=== PATIENT | female | born 1950 | race Hispanic/Latino ===

== ENCOUNTER → 2017-08-08 | Outpatient (CLI) | payer MEDICARE, OTHER ==
--- NOTE | 2017-08-08 11:32 | Diagnostic Imaging Report ---
PROCEDURE: Frontal and lateral views of the chest. COMPARISON: None. INDICATIONS: PRE PROCEDURAL CHEST X-RAY FINDINGS: Lines/tubes: None. Lungs: The lungs are well inflated and clear. There is no evidence of pneumonia or pulmonary edema. Pleura: There is no pleural effusion or pneumothorax. Heart and mediastinum: The heart and the mediastinum are normal. Bones: No acute bony abnormality. Degenerative changes in the thoracic spine. IMPRESSION: 1. No acute cardiopulmonary abnormality. Maverick Calderon M.D. Dictated by: Maverick Calderon M.D. on 08/08/2017 at 11:32 Electronically approved by: Maverick Calderon M.D. on 08/08/2017 at 11:32
== END ==
LOC: RAD 10:37
PROVIDERS: ATTEND Emergency Medicine
DX: Z01.818 Encounter for other preprocedural examination (principal)
CPT/HCPCS: 71046

== ENCOUNTER → 2018-02-04 | Outpatient (CLI) | payer MEDICARE, OTHER ==
--- NOTE | 2018-02-04 18:54 | Diagnostic Imaging Report ---
PROCEDURE:X-RAY RIGHT KNEE, THREE OR MORE VIEWS COMPARISON:None. INDICATIONS:pain rt knee FINDINGS: Mild osteopenia. No acute displaced fracture or dislocation. No lytic or blastic lesions. Mild degenerative changes in the knee joint, with presence of marginal osteophytes and mild joint space narrowing in the medial compartment. Curvilinear lucency in the lateral compartment is only seen in one view and may be artifactual. No suprapatellar effusion. CONCLUSION: 1. No acute displaced fracture or dislocation. Mild degenerative changes. Curvilinear lucency in the lateral compartment is only seen in one view and may be artifactual, however, recommend MRI of the knee if there is continued pain and clinical concern for ligamentous or meniscal injury. Maverick Calderon M.D. Dictated by: Maverick Calderon M.D. on 02/04/2018 at 19:01 Electronically approved by: Maverick Calderon M.D. on 02/04/2018 at 19:01
== END ==
LOC: RAD 14:57
PROVIDERS: ATTEND Emergency Medicine
DX: M25.561 Pain in right knee (principal)

== ENCOUNTER → 2018-09-18 | Outpatient (CLI) | payer MEDICARE, OTHER ==
--- NOTE | 2018-09-18 15:37 | Diagnostic Imaging Report ---
RIGHT SHOULDER - 2 Images HISTORY: Pain COMPARISON: None available. FINDINGS: Bones: No acute displaced fracture. No aggressive osseous lesion. Joints: Moderate hypertrophic degenerative changes of the acromioclavicular joint. Minimal degenerative changes of the glenohumeral joint. Soft tissues: The soft tissues appear unremarkable. IMPRESSION: 1. No acute radiographic abnormality. 2. Moderate acromioclavicular and minimal glenohumeral osteoarthrosis. Signed by: Dr. Ousmane Quevedo D.O., M.M.M. on 09/18/2018 3:34 PM
== END ==
LOC: RAD 15:05
PROVIDERS: ATTEND Emergency Medicine
DX: M25.511 Pain in right shoulder (principal)

== ENCOUNTER → 2020-03-29 | Outpatient (CLI) | payer OTHER, MEDICARE ==
--- NOTE | 2020-03-29 12:34 | Diagnostic Imaging Report ---
Examination: Brain MRI without Contrast History: Memory loss Comparison studies: None. Technique: Precontrast: Hi resolution Sag T1 with coronal and axial reformats. Axial DWI, T2, T2 flair, gradient echo or SWI Intravenous contrast: None. Findings: Structural lesions: No intra-or extra-axial masses. No hematomas. Atrophy: General: Symmetric and age appropriate. Focal: No disproportionate lobar, mesencephalic, pontine, or cerebellar atrophy. Hippocampi, fornices and mammillary bodies: Normal in size and symmetric. Mathur matter: Cortex: No signal abnormalities. No encephalomalacia. Basal ganglia: No atrophy or signal abnormalities. Substantia nigra: No signal abnormalities. Microhemorrhage: None. White matter: There are patchy and punctate areas of T2/FLAIR hyperintensity in the periventricular and subcortical white matter, nonspecific. Thalami: No signal abnormalities. Subarachnoid spaces:No signal abnormalities. Ventricles: Normal in size and configuration. No hydrocephalus. Other: Skull: No bone marrow abnormalities. Major arteries and veins: Expected flow voids present in the major arteries and dural sinuses.. Sella: Normal in size. No intra-or suprasellar abnormalities. Craniocervical junction: No abnormalities. Patent foramen magnum. No Chiari one malformation. Paranasal sinuses and mastoid air cells: No T2 hyperintense mucosal thickening. IMPRESSION: 1. Mild chronic microvascular ischemic change. 2. No disproportionate lobar volume loss. Signed by: Dr. Shasha Ramsey M.D. on 03/29/2020 12:31 PM
== END ==
LOC: MRI 10:30
PROVIDERS: ATTEND Emergency Medicine
DX: R41.3 Other amnesia (principal)
CPT/HCPCS: 70551

== ENCOUNTER → 2021-01-24 | Outpatient (CLI) | payer MEDICARE | LOC: MRI 10:13 | PROVIDERS: ATTEND Emergency Medicine | DX: R47.81 Slurred speech (principal) | CPT/HCPCS: 70551 ==

== ENCOUNTER 2021-02-03 19:03 | Emergency (ER) | payer MEDICARE ==
[~2021-02-03] VITALS: Ht 154.9 cm; Wt 65.8 kg
[2021-02-03 19:30] LABS: BASOPHILS # (AUTO) 0.1 (0.0-0.1); BASOPHILS % 0.6 % (0.0-1.0); EOSINOPHILS # (AUTO) 0.2 (0.0-0.4); EOSINOPHILS % 2.3 % (0.0-6.0); HEMOGLOBIN 12.5 g/dL (12.0-16.0); LYMPHOCYTES # (AUTO) 2.2 (1.0-3.2); MEAN CORPUSCULAR HEMOGLOBIN 29.5 pg (28-32); MEAN CORPUSCULAR HGB CONC 32.1 g/dL (31-35); MONOCYTES # (AUTO) 0.6 (0.2-0.8); MONOCYTES % 5.5 % (4.4-11.3); NEUTROPHILS # (AUTO) 6.9 (2.1-6.9); NEUTROPHILS % 69.1 % (38.7-80.0); PLATELET COUNT 227 x10e3/uL (140-360); RED BLOOD COUNT 4.24 x10e6/uL (3.6-5.1); RED CELL DISTRIBUTION WIDTH 14.1 % (11.7-14.4)
[2021-02-03 19:36] LABS: INR 0.94; PROTHROMBIN TIME 12.8 seconds (11.9-14.5)
[2021-02-03 19:41] LABS: COLOR,URINE YELLOW (YELLOW)
[2021-02-03 19:42] LABS: CLARITY,URINE SL CLOUDY (CLEAR); KETONES,URINE NEGATIVE (NEGATIVE); LEUKOCYTE ESTERASE ,URINE NEGATIVE (NEGATIVE); NITRITE,URINE NEGATIVE (NEGATIVE); PROTEIN,URINE DIPSTICK 1+ (NEGATIVE); URINE UROBILINOGEN 0.2 mg/dL (0.2 - 1)
[2021-02-03 19:43] LABS: ALBUMIN 4.1 g/dL (3.5-5.0); ALBUMIN/GLOBULIN RATIO 1.3 (0.8-2.0); ANION GAP 14.3 mmol/L (8-16); CALCIUM 9.3 mg/dL (8.4-10.2); CREATININE, SERUM 0.9 mg/dL (0.57-1.11); POTASSIUM 3.3 mmol/L (3.5-5.1)
[2021-02-03 20:00] LABS: BACTERIA,URINE MANY /HPF; EPITHELIAL CELLS,URINE FEW /LPF; RBC,URINE >50 /HPF (0-5)
[2021-02-03] MEDS ORDERED: CEPHALEXIN500 MG PO (20:19)
[2021-02-03] MEDS ORDERED: ASPIRIN 81 MG CHEW TAB PO ONE (20:30)
== END 2021-02-03 21:10 | disposition home or self-care (01) ==
LOC: ER 19:18
DX: N39.0 Urinary tract infection, site not specified (principal); I10 Essential (primary) hypertension
CPT/HCPCS: 36415; 70450; 70551; 80053; 81001; 82948; 84484; 85025; 85610; 87086; 87186; 93005; 99284

== ENCOUNTER → 2021-06-02 | Outpatient (CLI) | payer MEDICARE ==
[~2021-06-02] MED LIST: CEPHALEXIN500 MG PO
[2021-06-02 14:19] LABS: CREATININE, SERUM 0.7 mg/dL (0.57-1.11)
== END ==
LOC: CT 13:09
PROVIDERS: ATTEND Emergency Medicine
DX: R10.9 Unspecified abdominal pain (principal); K57.30 Diverticulosis of large intestine without perforation or abscess without bleeding; M51.36 Other intervertebral disc degeneration, lumbar region; N28.1 Cyst of kidney, acquired
CPT/HCPCS: 36415; 74177; 82565; 84520

== ENCOUNTER → 2022-02-19 | Outpatient (CLI) | payer MEDICARE | LOC: RAD 13:39 | PROVIDERS: ATTEND Emergency Medicine | DX: M79.604 Pain in right leg (principal); M79.89 Other specified soft tissue disorders; M71.21 Synovial cyst of popliteal space [Baker], right knee | CPT/HCPCS: 93971 ==

== ENCOUNTER → 2022-04-20 | Outpatient (CLI) | payer MEDICARE | LOC: RAD 13:35 | PROVIDERS: ATTEND Emergency Medicine | DX: M79.604 Pain in right leg (principal) | CPT/HCPCS: 93971 ==

== ENCOUNTER → 2024-08-12 | Outpatient (REF) | payer MEDICARE | LOC: MRI 10:18 | PROVIDERS: ATTEND Emergency Medicine | DX: R42 Dizziness and giddiness (principal) | CPT/HCPCS: 70551 ==